=== PATIENT | female | born 1995 | race Caucasian/White ===

== ENCOUNTER 2023-03-26 12:43 | Emergency (ER) | payer OTHER, SELFPAY ==
[2023-03-26] MEDS ORDERED: Ketorolac Tromethamine 30 MG (1 mL) VIAL ONE (13:52)
== END 2023-03-26 15:40 | disposition home or self-care (01) ==
LOC: CSHERS 12:43
DX: M54.50 Low back pain, unspecified (principal); F17.210 Nicotine dependence, cigarettes, uncomplicated
CPT/HCPCS: 72072; 72100; 96372; J1885